=== PATIENT | female | born 1965 | race Two or more races ===

== ENCOUNTER 2025-03-20 12:06 | Emergency (ER) | payer SELFPAY ==
[2025-03-20 12:08] VITALS: BMI 25.7
[2025-03-20 12:44] VITALS: BP 135/81; PULSE 81; RESP 18; TEMP 36.8; O2SAT 97
--- NOTE | 2025-03-20 12:46 | XR_ITS ---
Examination: Right knee 2 views Technique one AP lateral right knee 2 views Date and time: March 20, 2025 1302 hours INDICATIONS: Injury to the knee today, knee pain. FINDINGS: No fracture or dislocation. Small knee effusion IMPRESSION: No fracture or dislocation
--- NOTE | 2025-03-20 12:48 | PD.EDLOWEX ---
Lower Extremity Injury RME/HPI General Chief Complaint: Extremity Injury, Lower Stated Complaint: RIGHT KNEE PAIN AFTER HITTING KNEE AGAINST SEAT Time Seen by Provider: 03/20/25 12:32 Arrival date/time: 03/20/25 12:06 RME / HPI RME / HPI Narrative: 59-year-old female patient came in for evaluation regarding right knee pain. Patient hit her knee on a airplane chair resulting into pain, described as dull ache, severity moderate. Patient incident happened about 4 hours ago. Denies any other complaints patient is able to ambulate but limping. No medication was taken prior to arrival. Related Data Allergies Allergy/AdvReac Type Severity Reaction Status Date / Time No Known Allergies Allergy Verified 03/20/25 12:08 Review of Systems Review of Systems Narrative Review of Systems: Review of system reviewed and within normal limits except mentioned in HPI ED Exam Narrative Physical exam: VITAL SIGNS: Reviewed. GENERAL APPEARANCE: Alert and interactive, follows commands, no acute distress, HEAD AND FACE: Non-traumatic. ENT: PERRL, pink conjunctivitis, eyelid no trauma, Mucous membrane moist. NECK: Supple, nontender, no nuchal rigidity. CHEST: No tenderness, no crepitus, no paradoxical movement, no retractions. LUNGS: Clear, well ventilated, symmetric, no rales, no wheezing, no ronchi, no stridor, good breath sounds bilaterally. HEART: Regular rate, regular rhythm, no murmur, no gallops. ABDOMEN: Soft, positive bowel sounds, nondistended, no guarding, nontender, no rebound, no masses, RECTAL: Deferred. GENITAL: Deferred. NEUROLOGICAL: Gross motor function intact sensory function intact, Appropriate for age. MUSCULOSKELETAL: low back nontender, full range of motion. EXTREMITIES: Tenderness to the anterior knee, no redness no swelling full range of motion. SKIN: Color pink, dry, no rash, no lacerations, no abrasions, no contusions. LYMPHATICS: Deferred. Course Quality Measures none Orders Category Date Time Status XR knee limited RT 2V Stat Exams 03/20/25 12:46 Completed Ibuprofen Tab [Motrin Tab] Med 03/20/25 12:46 Discontinued 800 mg PO X1 ONE Vital Signs Vital signs: Vital Signs Temperature 98.3 F 03/20/25 12:44 Pulse Rate 81 03/20/25 12:44 Respiratory Rate 18 03/20/25 12:44 Blood Pressure 135/81 H 03/20/25 12:44 Pulse Oximetry (%) 97 03/20/25 12:44 Oxygen Delivery Method Room Air 03/20/25 12:44 Extremity Injury, Lower MDM Narrative MDM Narrative:: 59-year-old female patient came in for evaluation regarding right knee pain. Patient hit her knee on a airplane chair resulting into pain, described as dull ache, severity moderate. Patient incident happened about 4 hours ago. Denies any other complaints patient is able to ambulate but limping. No medication was taken prior to arrival. X-ray of the right knee came back unremarkable. Results discussed with the patient. Patient was given crutches. Patient is stable for discharge home, Patient data External records reviewed:: None Clinical information provided by:: patient Social determinants that could affect healthcare access:: none Patient has the following chronic illnesses:: None How is presenting disease/condition affected by chronic disease/condition?: no chronic disease Evaluation data The following diagnostics were reviewed and interpreted by me:: radiology exam(s) Lab and/or radiology exams considered but not ordered:: None Interpretation Summary: X-ray of the knee came back unremarkable. Medications / Prescriptions Medications or Prescriptions considered but not ordered:: None Medication administrations:: Medication Administration History Discontinued Medications Ibuprofen (Ibuprofen Tab 400 Mg Tablet) 800 mg PO X1 ONE Stop: 03/20/25 12:47 None Consultations Consultation(s) initiated? (list below): No Diagnosis Extremity Injury, Lower Differential Diagnosis: other (Knee pain patellar fracture knee contusion) Most likely diagnosis given after review of the tests above:: Knee contusion Admission Indicated Admission indicated?: not indicated Admission Request Was there a request for admission?: No Disposition Plan Disposition Plan: Discharge Discharge Attestation Discharge Attestation: The patient and all family members were given an opportunity to ask questions and understood the discharge instructions. Discharge instructions specifically effects, indications for sooner follow up or return to the emergency department, and the expected course of current diagnosis. Patient condition: Stable Discharge Plan Plan Patient Disposition: HOME (Self Care) Discharge Disposition comment: Stable Prescriptions/Referrals Referrals: No Primary/Family,Physician [Primary Care Provider] - In 1 week Problem List Clinical Impression: Contusion of knee Patient/Caregiver Discharge Instructions Discharge Activity: activity as tolerated Education Materials: ED Contusion, Lower Extremity Additional Instructions: Thank you for the opportunity for serving you today. You are stable for discharged . You are advised to: Follow-up with your PCP in 1 to 2 days Return to ED for worsening of symptoms Increase oral fluids Take [id number] Motrin as needed for pain Ambulatory crutches as needed Print Language: Nigerien Stand Alone Forms: [employer] Award Info., Patient Portal Info Letter
== END 2025-03-20 16:07 | disposition home or self-care (01) ==
PROVIDERS: Emergency Provider Family Medicine
DX: S80.01XA Contusion of right knee, initial encounter (principal); W22.8XXA Striking against or struck by other objects, initial encounter; Y92.813 Airplane as the place of occurrence of the external cause
CPT/HCPCS: 73560; 99283